=== PATIENT | male | born 2000 | race Hispanic/Latino ===

== ENCOUNTER 2023-08-28 14:31 | Emergency (ER) | payer SELFPAY ==
--- OUTSIDE RECORDS SUMMARY | 2023-08-28 14:33 | XMS REPORT | Continuity of Care Document ---
:2000 Author Organization [facility] t Address [address] [facility] [address] [place] [address] Care Team Providers Name Role Phone Pcp, Patient Does Not Have A Primary Care Physician [id number] Uzma Marino DO Attending Clinician UZMA MARINO Attending Clinician Unavailable Seth Alarcon Attending Clinician Unavailable Payers Payer Name Policy Type Policy Number Effective Date Expiration Date S ource Problems Condition Condition Condition Status Onset Resolution Last Treating Co mments Source Name Details Category Date Date Treatment Clinician Date Influenza Influenza Disease Active 2016-11 Uni vers 2-16 ity of 00:00: [address] Acetaminop Acetaminop Disease Active 2016-11 U sofía gore 2-15 ity of toxicity toxicity 00:00: [address] Acetaminop Acetaminop Disease Active 2016-11 U sofía gore 2-15 ity of overdose overdose 00:00: [place] 00 [facility] Branch [place]-Ania Juan-Ania Disease Active 2014-11 U sofía almazan's latter's 1-13 ity of disease disease 00:00: [place] 00 [facility] Branch 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 ICD10 Diagnosis Term Billing Auditor Utility Attention- Attention- Disease Active 2012-11 Overview : Univers deficit deficit 2-20 Formattin ity o f hyperactiv hyperactiv 00:00: g of this [place] ity ity 00 note Medical disorder, disorder, might be Br anch predominan predominan different tly tly from the hyperactiv hyperactiv original. e type e type ICD10 Diagnosis Term Billing Auditor Utility Allergic Allergic Disease Active 2012-11 Overview: Un bladimir rhinitis rhinitis 2-20 Formattin ity of due to due to 00:00: g of this [place] pollen pollen 00 note Medical might be Branch different from the original. ICD10 Diagnosis Term Billing Auditor Utility Allergies, Adverse Reactions, Alerts Allergy Allergy Status Severity Reaction(s) Onset Inactive Treating Comm ents Source Name Type Date Date Clinician No Known DA Active [facility] Drug 8-10 Allergie 00:00: s 00 NO KNOWN Drug Active [facility] ALLERGIE Class ity of S [facility] Social History Social Habit Start Date Stop Date Quantity Comments Source Gender identity Universit y of [facility] 2023-06-26 2023-06-26 Current University of 00:00:00 00:00:00 non-drinker of [facility] alcohol Branch (finding) History of Social 2019-06-01 2019-06-01 Univers ity of function 00:00:00 00:00:00 [facility] Tobacco use and 2013-11-10 2013-11-10 Smokeless Universit y of exposure 00:00:00 00:00:00 tobacco non-user [facility] Sex Assigned At [birth year] Universit y of 00:00:00 00:00:00 [facility] Smoking Status Start Date Stop Date Source Never smoked tobacco [facility] Medications Ordered Filled Start Stop Current Ordering Indication Dosage Frequency Signature Comments Components Source Medication Medication Date Date Medication? Clinician (SIG) Name Name amphetamine 2018- Yes [id number] 30mg Take 1 Univers -dextroamph 7-11 capsule by it y of etamine 00:00: mouth [place] (ADDERALL 00 every Medical XR) 30 mg morning. Branch 24 hr capsule Vital Signs Vital Name Observation Time Observation Value Comments Source Systolic blood 2023-06-26 09:55:00 137 mm[Hg] Univer sity of pressure [facility] Diastolic blood 2023-06-26 09:55:00 95 mm[Hg] Unive rsity of pressure [facility] Heart rate 2023-06-26 09:55:00 95 /min [facility] Body temperature 2023-06-26 09:55:00 37.39 Awa [facility] Respiratory rate 2023-06-26 09:55:00 16 /min [facility] height 2023-06-26 09:55:00 180.3 cm [facility] Body weight 2023-06-26 09:55:00 70.308 kg [facility] BMI 2023-06-26 09:55:00 21.62 kg/m2 [facility] Oxygen saturation in 2023-06-26 09:55:00 98 /min [facility] Arterial blood by [facility] Pulse oximetry Branch Procedures Procedure Date / Time Performed Performing Clinician Alfredo moreno [place] SIMPLE REPAIR 2023-06-26 10:26:54 Uzma Marino [facility] SCALP/NECK/AX/GENIT/T Medical Br anch RUNK 2.5CM/< NOTICE OF PRIVACY 2023-06-26 09:55:55 Doctor Unassigned, No Univ [facility] PRACTICES Name Medical Branch CONSENT/REFUSAL FOR 2023-06-26 09:54:48 Doctor Unassigned, No [facility] AND Name Medical Branch TREATMENT Encounters Start End Encounter Admission Attending Care Care Encounter Source Date/Time Date/Time Type Type Clinicians Facility Department ID 2023-06-26 2023-06-26 Emergency ALAINA Marino [id number] Univers 05:04:00 05:36:00 Uzma MANJARREZ [id number] murali [facility] [id number] Jerold [facility] [id number] [facility] 084 Branch 2023-06-26 2023-06-26 Emergency X ALAINA MARINO ERT [id number] Univers 05:04:00 05:36:00 UZMA carrion [facility] 2021-07-01 2021-07-01 Emergency Emergency Kian Alarcon [facility] [id number] [facility] 18:44:00 19:35:00 Amir 77 Results This patient has no known results.
[2023-08-28] MEDS ORDERED: HYDROCODONE/APAP 10/325 TAB ONE (14:51)
--- NOTE | 2023-08-28 15:46 | RAD REPORT ---
EXAM DESCRIPTION: RAD - Ankle Left 3 View - 08/28/2023 3:21 pm CLINICAL HISTORY: PAIN COMPARISON: No comparisons FINDINGS: No fracture or dislocation seen. Mild soft tissue swelling.
--- NOTE | 2023-08-28 15:56 | ER ---
Nurse's Notes [facility] Name: Benny Michaels Age: 23 yrs Sex: Male : 2000 Arrival Date: 08/28/2023 Time: 14:31 Bed 6 Private MD: Diagnosis: Sprain of ankle Presentation: 08/28 14:34 Coronavirus screen: Client denies travel out of the [place] in the last 14 days. At this ph time, the client does not indicate any symptoms associated with coronavirus-19. Ebola Screen: No symptoms or risks identified at this time. 14:34 Method Of Arrival: Ambulatory 14:34 Chief complaint: Patient states: Injury to L ankle while playing basketball. Initial ph Sepsis Screen: Does the patient meet any 2 criteria? No. Patient's initial sepsis screen is negative. Does the patient have a suspected source of infection? No. Patient's initial sepsis screen is negative. Risk Assessment: Do you want to hurt yourself or someone else? Patient reports no desire to harm self or others. 14:34 Acuity: SUE 4 14:35 Onset of symptoms was August 28, 2023. Triage Assessment: 14:35 General: Appears uncomfortable, Behavior is calm, cooperative, appropriate for age. ll1 Pain: Complains of pain in L ankle Pain currently is 10 out of 10 on a pain scale. Quality of pain is described as aching. Musculoskeletal: Reports pain in L ankle. Injury Description: rolled L ankle playing basketball. Historical: - Allergies: 14:33 No Known Allergies; ph - PMHx: 14:33 None; ph - PSHx: 14:33 None; ph - Immunization history:: Adult Immunizations up to date. - Social history:: Smoking status: Patient denies any tobacco usage or history of. - Family history:: not pertinent. Screenin:35 [facility] ED Fall Risk Assessment (Adult) History of falling in the last 3 months, ph including since admission No falls in past 3 months (0 pts) Score/Fall Risk Level 0 - 2 = Low Risk Oriented to surroundings, Maintained a safe environment, Provided non-skid footwear, Hourly rounding (assess needs \T\ fall precautionary measures) done. Abuse screen: Denies threats or abuse. Denies injuries from another. Nutritional screening: No deficits noted. Tuberculosis screening: No symptoms or risk factors identified. Assessment: 14:42 General: Appears in no apparent distress. uncomfortable, Behavior is calm, cooperative. ph Neuro: Verdugo Agitation-Sedation Scale (RASS): +1 Restless Level of Consciousness is awake, alert, obeys commands, Oriented to person, place, time, situation. Cardiovascular: Capillary refill < 3 seconds in bilateral fingers Patient's skin is warm and dry. Respiratory: Airway is patent Respiratory effort is even, unlabored, Respiratory pattern is regular, symmetrical. Derm: Skin is intact, Skin is pink, warm \T\ dry. Musculoskeletal: Range of motion: limited in left ankle. 16:20 Reassessment: Patient appears in no apparent distress at this time. Patient and/or iw family updated on plan of care and expected duration. Pain level reassessed. Patient is alert, oriented x 3, equal unlabored respirations, skin warm/dry/pink. Vital Signs: 14:34 BP 141 / 101; Pulse 98; Resp 18; Temp 98.3; Pulse Ox 98% ; Weight 74.84 kg; ll1 ED Course: 14:32 Patient arrived in ED. rt 14:32 Vinod Markham MD is Attending Physician. rt 14:32 Netta Hillman, RAUL is Primary Nurse. ph 14:34 Arm band placed on Patient placed in an exam room, on a stretcher. ll1 14:35 Triage completed. ph 14:35 Patient has correct armband on for positive identification. Bed in low position. Call ph light in reach. Side rails up X 1. Door closed. Noise minimized. 14:42 Ice pack to injury. ph 15:23 Ankle Left 3 View XRAY In Process Unspecified. EDMS 15:56 Urban Springer MD is Referral Physician. rt 16:20 Provided Education on: crutches. iw 16:21 No provider procedures requiring assistance completed. Patient did not have IV access iw during this emergency room visit. Administered Medications: 14:41 Drug: HYDROcodone-acetaminophen PO 10 mg-325 mg 1 tabs PO once Route: PO; ph 15:56 Follow up: Response: No adverse reaction ph 15:56 Follow up: Response: No adverse reaction; Pain is decreased; RASS: Alert and Calm (0) ph Medication: 14:35 VIS not applicable for this client. ph Outcome: 15:56 Discharge ordered by . rt 16:21 Discharged to home ambulatory, with crutches, with family, iw 16:21 Condition: good 16:21 Discharge instructions given to patient, Instructed on discharge instructions, follow up and referral plans. Demonstrated understanding of instructions, follow-up care, medications, crutch walking, Prescriptions given X 1, 16:21 Patient left the ED. iw Signatures: Dispatcher [employer] EDPriscila Peterson RN RN Netta Hillman RN RN ph Lewis, Lynsay RN RN ll1 Vinod Markham MD MD rt Corrections: (The following items were deleted from the chart) 14:35 14:34 BP 141 / 101; Pulse 98bpm; Resp 18bpm; Pulse Ox 98%; Temp 98.3F; ph ll1
--- NOTE | 2023-08-28 15:56 | EDPHYS ---
Physician Documentation [facility] Name: Benny Michaels Age: 23 yrs Sex: Male : 2000 Arrival Date: 08/28/2023 Time: 14:31 Bed 6 Private MD: ED Physician Vinod Markham HPI: 08/28 14:35 This 23 yrs old Male presents to ER via Ambulatory with complaints of Left rt ankle pain. 14:35 Patient presents to the ED with left ankle pain. Patient was playing basketball, when rt he fell, causing his ankle to invert. Denies other injury. Does report pain to entire to the ankle with swelling. Denies other injury or other acute complaints. Pain is aching nature, nonradiating, moderate severity, no other aggravating or elevating factors.. Historical: - Allergies: 14:33 No Known Allergies; ph - PMHx: 14:33 None; ph - PSHx: 14:33 None; ph - Immunization history:: Adult Immunizations up to date. - Social history:: Smoking status: Patient denies any tobacco usage or history of. - Family history:: not pertinent. ROS: 14:35 Constitutional: Negative for fever, chills, and weight loss, Cardiovascular: Negative rt for chest pain, palpitations, and edema, Respiratory: Negative for shortness of breath, cough, wheezing, and pleuritic chest pain, Abdomen/GI: Negative for abdominal pain, nausea, vomiting, diarrhea, and constipation, Skin: Negative for injury, rash, and discoloration, Neuro: Negative for headache, weakness, numbness, tingling, and seizure, Psych: Negative for depression, anxiety, suicide ideation, homicidal ideation, and hallucinations, 14:35 MS/extremity: Positive for pain, swelling, Exam: 14:35 Constitutional: This is a well developed, well nourished patient who is awake, alert, rt and in no acute distress. Head/Face: Normocephalic, atraumatic. Chest/axilla: Normal chest wall appearance and motion. Nontender with no deformity. No lesions are appreciated. Cardiovascular: Regular rate and rhythm with a normal S1 and S2. No gallops, murmurs, or rubs. Normal PMI, no JVD. No pulse deficits. Respiratory: Lungs have equal breath sounds bilaterally, clear to auscultation and percussion. No rales, rhonchi or wheezes noted. No increased work of breathing, no retractions or nasal flaring. Abdomen/GI: Soft, non-tender, with normal bowel sounds. No distension or tympany. No guarding or rebound. No evidence of tenderness throughout. Skin: Warm, dry with normal turgor. Normal color with no rashes, no lesions, and no evidence of cellulitis. Neuro: Awake and alert, GCS 15, oriented to person, place, time, and situation. Cranial nerves II-XII grossly intact. Motor strength 5/5 in all extremities. Sensory grossly intact. Cerebellar exam normal. Normal gait. Psych: Awake, alert, with orientation to person, place and time. Behavior, mood, and affect are within normal limits. 14:35 Musculoskeletal/extremity: Swelling to the lateral malleolus, tenderness diffusely on the left ankle, pulses, motor, sensation intact, no overlying skin changes, no other areas of tenderness on the left leg.. Vital Signs: 14:34 BP 141 / 101; Pulse 98; Resp 18; Temp 98.3; Pulse Ox 98% ; Weight 74.84 kg; ll1 MDM: 14:35 Patient medically screened. rt 16:01 Differential diagnosis: fracture, sprain. Data reviewed: vital signs, nurses notes, rt radiologic studies. Independent interpretation of the following test(s) in the Emergency Department X-Ray: My interpretation is No fracture seen on interpretation of the x-ray images. Test considered but Not performed: CT: Low suspicion for occult fracture, CT scan not indicated. Counseling: I had a detailed discussion with the patient and/or guardian regarding the historical points, exam findings, and any diagnostic results supporting the discharge/admit diagnosis, radiology results, the need for outpatient follow up. ED course: No evidence of compartment syndrome, symptoms most consistent with a sprain. Patient to follow-up as an outpatient.. 08/28 14:35 Order name: Ankle Left 3 View XRAY; Complete Time: 15:52 rt 08/28 15:55 Order name: Walking boot; Complete Time: 16:20 rt 08/28 16:16 Order name: Crutches; Complete Time: 16:20 rt Administered Medications: 14:41 Drug: HYDROcodone-acetaminophen PO 10 mg-325 mg 1 tabs PO once Route: PO; ph 15:56 Follow up: Response: No adverse reaction ph 15:56 Follow up: Response: No adverse reaction; Pain is decreased; RASS: Alert and Calm (0) ph Disposition Summary: 08/28/23 15:56 Discharge Ordered Notes: Location: Home rt Problem: new rt Symptoms: have improved rt Condition: Stable rt Diagnosis - Sprain of ankle rt Followup: rt - With: Urban Sprniger MD - When: As needed - Reason: Discharge Instructions: - Discharge Summary Sheet rt - Ankle Sprain rt Forms: - Medication Reconciliation Form rt - Thank You Letter rt - Antibiotic Education rt - Prescription Opioid Use rt - Patient Portal Instructions rt - Leadership Thank You Letter rt Prescriptions: - Tramadol 50 mg Oral Tablet - take 1 tablet ORAL route every 8 hours as needed; 12 tablet; Refills: 0, rt Product Selection Permitted Signatures: Dispatcher [employer] Netta Elizondo RN RN ph Vinod Markham MD MD rt
[2023-08-28 16:54] VITALS: BP 141/101; TEMP 98.3; O2SAT 98
== END 2023-08-28 16:21 | disposition home or self-care (01) ==
LOC: ER 14:31
DX: S93.402A Sprain of unspecified ligament of left ankle, initial encounter (principal); X50.1XXA Overexertion from prolonged static or awkward postures, initial encounter; Y93.67 Activity, basketball; Y92.9 Unspecified place or not applicable; Y99.8 Other external cause status
CPT/HCPCS: 99283